=== PATIENT | male | born 1935 | race Caucasian/White ===

== ENCOUNTER 2016-11-04 19:24 | Emergency (ER) | payer MEDICARE, OTHER ==
--- NOTE | 2016-11-05 06:45 | ER ---
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 No loss of consciousness. Does admit to nausea and lightheadedness since the injury, was transported by [facility] as a partial trauma. The patient is on apixaban. Denies any recent fevers, chills, nausea, vomiting, or diarrhea. PAST MEDICAL HISTORY: ILLNESSES: Atrial fibrillation, type 2 diabetes, peptic ulcers, hyperlipidemia, peripheral neuropathy, macular degeneration, neurogenic bladder, stomach adenoma. ALLERGIES: MORPHINE. MEDICATIONS: Please see nurse's MAR. 1. Enalapril. 2. Gabapentin. 3. Hydrocodone 7.5/325. 4. Insulin glargine. 5. Multivitamin. 6. Oxybutynin. 7. Allopurinol. 8. Citalopram. 9. Glipizide. 10.Indomethacin. 11.Metformin. 12.Pantoprazole. 13.Terazosin. 14.Apixaban. 15.Atorvastatin. 16.Diltiazem. Last tetanus unknown. REVIEW OF SYSTEMS: Otherwise, 12-point review of systems negative for all other systems, illnesses, or operations. FAMILY AND SOCIAL HISTORY: , nonsmoker, nondrinker. [employer]. PHYSICAL EXAMINATION: VITAL SIGNS: Temp 98.4, pulse 84, respirations 16, BP 153/54, SaO2 of 94% on room air. GENERAL: A 3.5 cm occipital cephalhematoma with scalp laceration. No evidence of epistaxis, rhinorrhea, or otorrhea. NECK: Supple without lymphadenopathy or thyromegaly. CHEST: Clear. Breath sounds equal. HEART: Regular rate, irregular rhythm, without murmur, gallop, or edema. ABDOMEN: Soft, nontender, nondistended without mass or megaly. Bowel sounds hypoactive. EXTREMITIES: No evidence of Homans sign, synovitis, or dermatitis. ADMIT: 11/04/2016 RM/LOC: [facility] MR#: [id number] [address] [id number] KURT DIEHL [address] [place], [place] [id number] Emergency Room Report SEX: M AGE: 81 : 1935 NEURO: EOMI. PERRLA. No evidence of drift, dysarthria, or ataxia. Gait normal. No orthostasis. MEDICAL DECISION MAKING: Patient is partial trauma. Lab on arrival ABGs; pH 7.35, pCO2 of 35, PO2 of 69. Lactic acid 3.5 (patient is on metformin). Creatinine 1.5. Ethanol 0. Tox screen negative. UA negative. O positive, antibody screen negative. WBC 7.9, hemoglobin 12.8, platelet 195. INR 1.14. Glucose 215. The patient's wound was thoroughly cleansed, explored. No foreign body was identified. Three franklin, which patient tolerated well. DIAGNOSES: 1. Scalp laceration. 2. Orthostatic hypotension. 3. Atrial fibrillation, chronically anticoagulated. RECOMMENDATION: 1. Keep wound clean. Follow up Dr. Gabi ECHEVARRIA a week from tomorrow for staple removal. 2. General precautions concerning head injury, orthostasis, and Wound Care. ADMISSION/DISCHARGE CONDITION: Improved. Brad Murphy MD/ amelie JOB #: [id number] CC: Brad Murphy MD, Attending Physician [facility] Physician, Family Physician Coreen Ashley MD
== END 2016-11-04 21:30 | disposition home or self-care (01) ==
LOC: ER 19:24
PROC: 0HQ0XZZ Repair Scalp Skin, External Approach (ICD-10-PCS; principal; 2016-11-04)
DX: S01.01XA Laceration without foreign body of scalp, initial encounter (principal); I95.1 Orthostatic hypotension; I48.91 Unspecified atrial fibrillation; E11.9 Type 2 diabetes mellitus without complications; E78.5 Hyperlipidemia, unspecified; Z79.4 Long term (current) use of insulin; Z79.84 Long term (current) use of oral hypoglycemic drugs; Z79.899 Other long term (current) drug therapy; Z79.01 Long term (current) use of anticoagulants; Z23 Encounter for immunization; Z88.5 Allergy status to narcotic agent; W18.39XA Other fall on same level, initial encounter